=== PATIENT | female | born 1970 | race Caucasian/White ===

== ENCOUNTER → 2016-10-27 | Day surgery (SDC) | payer BC, SELFPAY ==
[~2016-10-27] VITALS: Ht 157.5 cm; Wt 91.0 kg
[~2016-10-27] MED LIST: ASPIRIN EC81 MG PO; LIPITOR40 MG PO; LOPRESSOR50 MG PO; NORCO 5-325 TA1 EACH PO; NORVASC5 MG PO; PEPCID20 MG PO; PRINIVIL (ZESTRI5 MG PO; TYLENOL325 MG PO
--- NOTE | ~2016-10-27 | OR ---
PATIENT'S NAME: IRASEMA LEVINE [facility] AGE: 46 Y [address] ROOM: [place] [address] LOCATION: [facility] [place] ADMIT DATE: 10/27/2016 OR/Procedure Report DISCHARGE DATE: FAMILY PHYSICIAN: FAVIO PROCTOR MD ATTENDING PHYSICIAN: Moy oLgan SURGEON: Moy Logan MD BMET: MCKAYLA Siddiqi DATE OF PROCEDURE: 10/27/2016 PREOPERATIVE DIAGNOSIS: Ganglion cyst, right wrist. POSTOPERATIVE DIAGNOSIS: Ganglion cyst, right wrist. OPERATIONS PERFORMED: 1. Excision of ganglion cyst. 2. Ligation of radial artery. ANESTHESIA: Axillary block with sedation. INDICATIONS: This is a 46-year-old female with a large volar radial ganglion cyst on her right wrist. The cyst had been excised several years before and has now returned. It appears to measure about 4 x 3 x 2 cm. Radial pulse is palpable distal to the cyst, and Noel test was normal. DESCRIPTION OF PROCEDURE: The patient was brought to the operating room after a satisfactory axillary block had been established. The right upper extremity was prepped and draped in an aseptic manner. The extremity was exsanguinated with elevation, and pneumatic tourniquet inflated to 250 mmHg around the upper arm. The scar from the previous ganglion cyst excision was utilized and incision made in it and extended distally directly over the ganglion cyst. Very thin flaps were raised directly over the cyst, and the cyst was carefully dissected out. The radial artery was exposed proximal to the cyst, and it was stretched very tightly. In the course of attempting to dissect it off the cyst, it was cut. This cyst was finally dissected around, and the cyst had gone and intertwined with the radial artery such that even after removal of the cyst, fragments of the cyst were found with the radial artery as it was being dissected out to tie it off. The base of the cyst was found, and the communication with the joint was found. This was treated by bovieing it with electrocautery and then tying it off with an interrupted 4-0 Vicryl suture. The artery was then tied off at either end with 2-0 oh silk ties. The wound was irrigated copiously with saline. The tourniquet was deflated, and there was no arterial bleeding, nor was there any venous bleeding to speak of. Subcutaneous fat was closed by MCKAYLA Enriquez, with a running 3-0 Vicryl, and the skin closed with 4-0 nylon in a running horizontal mattress stitch. Dressings were applied. The patient was awakened and sent to PATIENT'S NAME: IRASEMA LEVINE [facility] AGE: 46 Y [address] ROOM: [place] [address] LOCATION: [facility] [place] ADMIT DATE: 10/27/2016 OR/Procedure Report DISCHARGE DATE: FAMILY PHYSICIAN: FAVIO PROCTOR MD ATTENDING PHYSICIAN: Moy Logan recovery area, having tolerated the procedure well. MD MERLINE THORNTON/leticial /[id number] d: 10/27/16 1718 t: 11/03/16 1050, OPERATIVE SUMMARY
== END ==
LOC: GPOC 10-25 09:00 → GSDC 05:59
PROC: 0XBG0ZZ Excision of Right Wrist Region, Open Approach (ICD-10-PCS; principal; 2016-10-27)
PROC: 03LB0ZZ Occlusion of Right Radial Artery, Open Approach (ICD-10-PCS; 2016-10-27)
DX: M67.431 Ganglion, right wrist (principal); I25.10 Atherosclerotic heart disease of native coronary artery without angina pectoris; I10 Essential (primary) hypertension; E66.9 Obesity, unspecified; Z68.34 Body mass index [BMI] 34.0-34.9, adult; E78.2 Mixed hyperlipidemia; F17.210 Nicotine dependence, cigarettes, uncomplicated; Z90.49 Acquired absence of other specified parts of digestive tract; Z91.040 Latex allergy status; Z79.899 Other long term (current) drug therapy
CPT/HCPCS: J2001; J7120

== ENCOUNTER → 2017-01-14 | Day surgery (SDC) | payer BC ==
[~2017-01-14] VITALS: Ht 160 cm; Wt 92.7 kg
== END | disposition disaster alternative care site (69) ==
LOC: GPOC 01-12 15:00 → GEND 07:45 → GPOC 15:00
PROC: 0DBN8ZZ Excision of Sigmoid Colon, Via Natural or Artificial Opening Endoscopic (ICD-10-PCS; principal; 2017-01-14)
DX: Z12.11 Encounter for screening for malignant neoplasm of colon (principal); D12.5 Benign neoplasm of sigmoid colon; K57.30 Diverticulosis of large intestine without perforation or abscess without bleeding; F17.210 Nicotine dependence, cigarettes, uncomplicated; F17.220 Nicotine dependence, chewing tobacco, uncomplicated; F41.9 Anxiety disorder, unspecified; F32.9 Major depressive disorder, single episode, unspecified; Z80.0 Family history of malignant neoplasm of digestive organs; Z98.890 Other specified postprocedural states; Z91.040 Latex allergy status
CPT/HCPCS: J7030

== ENCOUNTER → 2017-01-21 | Outpatient (CLI) | payer BC | END | disposition disaster alternative care site (69) | LOC: GRAD 10:58 | DX: R10.9 Unspecified abdominal pain (principal); D18.03 Hemangioma of intra-abdominal structures; K57.30 Diverticulosis of large intestine without perforation or abscess without bleeding | CPT/HCPCS: Q9967 ==